=== PATIENT | female | born 1955 | race Caucasian/White ===

== ENCOUNTER → 2024-07-03 | Outpatient (CLI) | payer OTHER ==
[2024-07-03 14:32] LABS: Hematocrit 35.4 % (33.0-51.0); Hemoglobin 11.5 g/dL (11.5-16.0); Mean Corpuscular HGB Conc 32.5 g/dL (31.5-36.5); Mean Corpuscular Volume 99 fL (80-100); Mean Platelet Volume 10.9 fL (9.1-12.4); Platelet Count 328 K/mm3 (150-400); RDW Coefficient Variation 11.8 % (11.7-14.2); RDW Standard Deviation 42.9 fL (35.1-46.3); Red Blood Cell Count 3.59 M/mm3 (3.80-5.20); White Blood Cell Count 6.58 K/mm3 (4.00-11.30)
[2024-07-03 16:58] LABS: Thyroid Stimulating Hormone 0.996 uIU/mL (0.360-4.800)
[2024-07-03 16:59] LABS: Albumin, Blood 3.5 g/dL (3.4-5.0); Albumin/Globulin Ratio 1.2 (0.8-1.8); Bilirubin, Total 0.9 mg/dL (0.1-1.0); Bun/Creatinine Ratio 19.4 (12.0-20.0); Calcium, Blood 8.1 mg/dL (8.5-10.1); Creatinine, Blood 0.88 mg/dL (0.40-1.00); Globulin, Blood 2.9 g/dL (2.2-4.0); Potassium, Blood 4.1 mmol/L (3.5-5.5); Total Protein, Blood 6.4 g/dL (6.4-8.2)
== END | disposition home or self-care (01) ==
LOC: LAB 08:00 → LAB SHORT 08:00
PROVIDERS: Internal Medicine
DX: E78.00 Pure hypercholesterolemia, unspecified (principal); R53.83 Other fatigue
CPT/HCPCS: 80053; 84443; 85027

== ENCOUNTER 2024-09-11 10:12 | Inpatient (IN) | payer OTHER ==
[~2024-09-11] VITALS: Ht 167.6 cm; Wt 65.8 kg
[2024-09-11] VITALS (17 sets, daily range): BP systolic 129–177; BP diastolic 63–100
[2024-09-11] MEDS ORDERED: Ondansetron HCl 2 MG / ML 2ML Vial IV ONE (10:30)
[2024-09-11] MEDS ORDERED: Morphine Sulfate 4 MG/1 ML Injection IV ONE ×2 (10:30→12:00)
[2024-09-11 11:39] LABS: BASOPHILS ABSOLUTE AUTO 0.04 K/mm3 (0.00-0.23); BASOPHILS PERCENT AUTO 0 % (0-2); EOSINOPHILS ABSOLUTE AUTO 0.16 K/mm3 (0.00-0.68); EOSINOPHILS PERCENT AUTO 1 % (0-6); Hematocrit 36.5 % (33.0-51.0); Hemoglobin 12.4 g/dL (11.5-16.0); IMMATURE GRAN ABSOLUTE AUTO 0.08 K/mm3 (0.00-0.10); IMMATURE GRAN PERCENT AUTO 1 % (0-1); LYMPHOCYTES ABSOLUTE AUTO 1.73 K/mm3 (0.84-5.20); LYMPHOCYTES PERCENT AUTO 12 % (21-46); MONOCYTES ABSOLUTE AUTO 0.64 K/mm3 (0.16-1.47); MONOCYTES PERCENT AUTO 5 % (4-13); Mean Corpuscular HGB 32.4 pg (26.0-34.0); Mean Corpuscular Volume 95 fL (80-100); Mean Platelet Volume 10.5 fL (9.1-12.4); NEUTROPHILS ABSOLUTE AUTO 11.52 K/mm3 (1.96-9.15); NEUTROPHILS PERCENT AUTO 81 % (41-73); Platelet Count 346 K/mm3 (150-400); RDW Coefficient Variation 11.7 % (11.7-14.2); RDW Standard Deviation 40.4 fL (35.1-46.3); Red Blood Cell Count 3.83 M/mm3 (3.80-5.20); White Blood Cell Count 14.17 K/mm3 (4.00-11.30)
[2024-09-11 11:56] LABS: Calcium, Blood 8.5 mg/dL (8.5-10.1); Creatinine, Blood 0.72 mg/dL (0.40-1.00); Potassium, Blood 3.7 mmol/L (3.5-5.5)
[2024-09-11] MEDS ORDERED: Ondansetron HCl 2 MG / ML 2ML Vial IV PRN (13:25)
[2024-09-11] MEDS ORDERED: FentaNYL Citrate 50 MCG/ML 2 ML Injection IV PRN (13:25)
[2024-09-11] MEDS ORDERED: DORZOLAMIDE-TIM10 ML BOTHEYES (14:03)
[2024-09-11] MEDS ORDERED: ESCITALOPRAM OXA5 MG PO (14:03)
[2024-09-11] MEDS ORDERED: ROCKLATAN 0.022.5 M1 BOTHEYES (14:03)
[2024-09-11] MEDS ORDERED: ESTRADIOL10 MCG PO (14:04)
[2024-09-11] MEDS ORDERED: propofoL 20 ML IV ONE (14:04)
[2024-09-11] MEDS ORDERED: PROGESTERONE200 MG PO (14:04)
[2024-09-11] MEDS ORDERED: Dexamethasone Sod Phos 10 MG/ML 1ML VIAL ONE (14:05)
[2024-09-11] MEDS ORDERED: Midazolam HCl 1MG / ML 2ML Vial ONE (14:05)
[2024-09-11] MEDS ORDERED: Ondansetron HCl 2 MG / ML 2ML Vial ONE (14:05)
[2024-09-11] MEDS ORDERED: FentaNYL Citrate 50 MCG/ML 2 ML Injection ONE ×2 (14:05→15:52)
[2024-09-11] MEDS ORDERED: Lactated Ringer's 1,000 ML IV SCH (14:15)
[2024-09-11] MEDS ORDERED: CeFAZolin Sodium 2,000 MG VIAL ONE (14:17)
--- NOTE | 2024-09-11 14:17 | NUR ---
PT HAS 18G IV TO LEFT AC THAT FLUSHES WELL AND FLOWS TO GRAVITY.
[2024-09-11] MEDS ORDERED: Tranexamic Acid 100 ML IV SCH (14:20)
[2024-09-11] MEDS ORDERED: CeFAZolin Sodium 2,000 MG in NS 100 ML IV SCH ×2 (14:20→22:00)
--- NOTE | 2024-09-11 14:32 | NUR ---
PT BROUGHT FROM ER TO DAY SURGERY FOR PROCEDURE. History, Chart, Medications and Allergies reviewed before start of procedure. Lungs clear T/O to Auscultation. Pre-Op teaching done. Pt verbalizes understanding. PT BELONGINGS GIVEN TO HER FRIEND FOR SAFEKEEPING.
[2024-09-11] MEDS ORDERED: EpiNEPhrine 1 MG/1 ML 1ML Vial ONE (14:55)
[2024-09-11] MEDS ORDERED: Bupivacaine 0.5% HCl 5 MG/ML 30MLVIAL ONE (14:55)
[2024-09-11] MEDS ORDERED: Glycopyrrolate 0.2 MG/ML 5ML VIAL ONE (14:59)
[2024-09-11] MEDS ORDERED: FLU VACC TS2024-25(6MOS UP)/PF 45 MCG/0.5 ML SYRINGE IM ONE (15:00)
--- NOTE | 2024-09-11 15:10 | NUR ---
09/11/24 1970 Jasvir Rose PATIENT NOTED TO HAVE TOE RING ON RIGHT SECOND TOE, TRIED TO REMOVE IT GENTLY AND WAS UNABLE. RING LEFT ON. UNABLE TO REMOVE UNDERWEAR WITHOUT CUTTING THEM OFF.
[2024-09-11] MEDS ORDERED: HydrALAZINE HCl 20 MG / ML 1ML Vial ONE (16:03)
[2024-09-11] MEDS ORDERED: HYDROmorphone HCl/Pf 1MG SYR ONE (16:14)
--- NOTE | 2024-09-11 19:01 | NUR ---
POST OP: REPORT RECEIVED FROM SALES CORRESPONDENT. PT TO UNIT AT 1650. VSS, A/O. SURGICAL SITE WNL. SENSATION INTACT. PT REPORTS PAIN 4/10, MEDICATED PER EMAR. NO N/V PT ORIENTED TO ROOM AND CALL LIGHT IN REACH. INSTRUCTED TO CALL STAFF FOR ASSIST OOB. NO ACUTE CONCERNS.
[2024-09-11] MEDS ORDERED: OxyCODONE 5 mg/Acetamin 325 mg TABLET PO PRN (20:15)
[2024-09-12] VITALS (7 sets, daily range): BP systolic 111–151; BP diastolic 52–67
--- NOTE | 2024-09-12 04:21 | NUR ---
SHIFT SUMMARY POD 1 L HIP NAILING PT RESTED FOR MOST OF SHIFT. PT VERY PAINFUL WITH ANY MOVEMENT, UNABLE TO GET OOB TONIGHT DUE TO PAIN. PAIN MANAGED OTHERWISE PER EMAR. PT DENIES N/T TO EXT'S, WIGGLES TOES AND HAS GOOD CAP REFILL. TOLERATING PO INTAKE, ABLE TO VOID. DRESSING TO L HIP IS C/D/I. VSS. NO OTHER NEEDS AT THIS TIME, CALL LIGHT WITHIN REACH
[2024-09-12 04:59] LABS: BASOPHILS ABSOLUTE AUTO 0.01 K/mm3 (0.00-0.23); BASOPHILS PERCENT AUTO 0 % (0-2); EOSINOPHILS PERCENT AUTO 0 % (0-6); Hematocrit 31.8 % (33.0-51.0); Hemoglobin 10.9 g/dL (11.5-16.0); IMMATURE GRAN ABSOLUTE AUTO 0.06 K/mm3 (0.00-0.10); IMMATURE GRAN PERCENT AUTO 1 % (0-1); LYMPHOCYTES ABSOLUTE AUTO 1.18 K/mm3 (0.84-5.20); LYMPHOCYTES PERCENT AUTO 10 % (21-46); MONOCYTES ABSOLUTE AUTO 1.05 K/mm3 (0.16-1.47); MONOCYTES PERCENT AUTO 9 % (4-13); Mean Corpuscular HGB 32.3 pg (26.0-34.0); Mean Corpuscular HGB Conc 34.3 g/dL (31.5-36.5); Mean Corpuscular Volume 94 fL (80-100); Mean Platelet Volume 10.4 fL (9.1-12.4); NEUTROPHILS ABSOLUTE AUTO 9.82 K/mm3 (1.96-9.15); NEUTROPHILS PERCENT AUTO 81 % (41-73); Platelet Count 288 K/mm3 (150-400); RDW Coefficient Variation 11.7 % (11.7-14.2); Red Blood Cell Count 3.37 M/mm3 (3.80-5.20); White Blood Cell Count 12.12 K/mm3 (4.00-11.30)
[2024-09-12 05:25] LABS: Bun/Creatinine Ratio 16.7 (12.0-20.0); Calcium, Blood 8.5 mg/dL (8.5-10.1); Creatinine, Blood 0.72 mg/dL (0.40-1.00); Potassium, Blood 3.9 mmol/L (3.5-5.5)
[2024-09-12] MEDS ORDERED: Enoxaparin 40 MG/0.4 ML SYR SC SCH (09:00)
[2024-09-12] MEDS ORDERED: Aspirin 81 MG TabEC PO SCH (09:00)
[2024-09-12] MEDS ORDERED: ESTRADIOL (TWI1 EAC4 TD (10:45)
--- NOTE | 2024-09-12 18:35 | NUR ---
SHIFT SUMMARY POD1 L HIP NAILING, A/OX4, VSS, TOLERATING PO, PAIN MANAGED PER EMAR, VOIDING, WORKED WITH THERAPY TODAY AND WAS UP TO THE CHAIR TWICE THIS SHIFT, SHE IS STILL VERY FEARFUL OF MOVEMENT, SHE IS SLOW WITH HER MOVEMENTS BUT SHE IS ABLE TO DO IT SAFELY WITH SBA. NO ACUTE EVETNS THIS SHIFT, CALL LIGHT IN REACH.
[2024-09-12] MEDS ORDERED: Polyethylene Glycol 3350 17 gm PO SCH (19:00)
[2024-09-12] MEDS ORDERED: Sennosides 8.6 MG Tab PO SCH (21:00)
--- NOTE | 2024-09-13 04:20 | NUR ---
SHIFT SUMMARY KRISTINA WAS ALERT AND FULLY ORIENTED ON ASSESMENT. PT PAIN WELL MANAGED AT REST, PAINFUL WITH ANY MOVEMENT. PT VERY ANXIOUS AND FEARFUL OF POTENTIAL PAIN. PT ABLE TO AMBULATE TO AND FROM BED WITH 1P ASSIST. NO ACUTE EVENTS TONIGHT, NO NOTED CHANGES TO PT CONDITION.
[2024-09-13 04:32] VITALS: BP 116/59
[2024-09-13 07:06] VITALS: BP 131/54
[2024-09-13 07:09] LABS: Hematocrit 28.5 % (33.0-51.0); Hemoglobin 9.6 g/dL (11.5-16.0); Mean Corpuscular HGB 32.2 pg (26.0-34.0); Mean Corpuscular HGB Conc 33.7 g/dL (31.5-36.5); Mean Corpuscular Volume 96 fL (80-100); Mean Platelet Volume 10.9 fL (9.1-12.4); Platelet Count 218 K/mm3 (150-400); RDW Coefficient Variation 12.1 % (11.7-14.2); Red Blood Cell Count 2.98 M/mm3 (3.80-5.20); White Blood Cell Count 12.18 K/mm3 (4.00-11.30)
[2024-09-13 14:44] VITALS: BP 131/71
--- NOTE | 2024-09-13 16:34 | NUR ---
SHIFT SUMMARY PT POD2 L HIP NAILING. PT WORKED WITH PHYSICAL THERAPY TODAY AND DID WELL. AT THIS POINT, PT IS WANTING TO D/C TO SNF FOR REHAB. PT MOSTLY NON-PAINFUL AT REST, BUT IS VERY ANXIOUS ABOUT ANY MOVEMENT OR PAIN. PT REQUESTING Q4 HR PAIN MEDICINE. AQUACEL X2 TO L HIP/LATER THIGH C/D/I. PT ODETTE PO INTAKE WELL AND VOIDING NORMALLY.
[2024-09-13 19:37] VITALS: BP 126/54
[2024-09-13] MEDS ORDERED: Progesterone, Micronized 100 MG Cap PO SCH (21:00)
[2024-09-13] MEDS ORDERED: Citalopram Hydrobromide 10 MG TAB PO SCH (21:00)
--- NOTE | 2024-09-14 04:24 | NUR ---
SHIFT SUMMARY KRISTINA WAS ALERT AND FULLY ORIENTED ON ASSESMENT. PAIN WELL MANAGED AT REST. AQUACEL DRESSINGS C/D/I. PT STATES THAT SHE IS FEELING BETTER TODAY. NO ACUTE EVENTS TONIGHT, NO NOTED CHANGES TO PT CONDITION. PT RESTING IN BED WITH CALL LIGHT IN REACH.
[2024-09-14 05:05] VITALS: BP 126/67
[2024-09-14 06:05] LABS: BASOPHILS ABSOLUTE AUTO 0.05 K/mm3 (0.00-0.23); BASOPHILS PERCENT AUTO 1 % (0-2); EOSINOPHILS PERCENT AUTO 5 % (0-6); Hematocrit 28.1 % (33.0-51.0); Hemoglobin 9.4 g/dL (11.5-16.0); IMMATURE GRAN ABSOLUTE AUTO 0.03 K/mm3 (0.00-0.10); IMMATURE GRAN PERCENT AUTO 0 % (0-1); LYMPHOCYTES ABSOLUTE AUTO 3.05 K/mm3 (0.84-5.20); LYMPHOCYTES PERCENT AUTO 28 % (21-46); MONOCYTES ABSOLUTE AUTO 0.98 K/mm3 (0.16-1.47); MONOCYTES PERCENT AUTO 9 % (4-13); Mean Corpuscular HGB 32.6 pg (26.0-34.0); Mean Corpuscular HGB Conc 33.5 g/dL (31.5-36.5); Mean Corpuscular Volume 98 fL (80-100); Mean Platelet Volume 10.4 fL (9.1-12.4); NEUTROPHILS ABSOLUTE AUTO 6.13 K/mm3 (1.96-9.15); NEUTROPHILS PERCENT AUTO 57 % (41-73); Platelet Count 227 K/mm3 (150-400); RDW Standard Deviation 42.3 fL (35.1-46.3); Red Blood Cell Count 2.88 M/mm3 (3.80-5.20); White Blood Cell Count 10.74 K/mm3 (4.00-11.30)
[2024-09-14 07:29] VITALS: BP 121/66
[2024-09-14] MEDS ORDERED: BRIMONIDINE TART5 M2 BOTHEYES (08:50)
--- NOTE | 2024-09-14 11:31 | NUR ---
DR. LOU ROUNDED. DR. LOU WAS NOTIFIED THAT PT'S HOME MED LIST WAS UPDATED AND REQUESTED THAT HE REVIEW AND RESTART ANY MEDICATIONS THAT HAVE NOT ALREADY BEEN ORDERED.
[2024-09-14 15:35] VITALS: BP 109/64
--- NOTE | 2024-09-14 19:54 | NUR ---
SHIFT SUMMARY POD#3 FROM L HIP NAILING. PAIN MANAGED WITH PO PAIN MEDICATION. PT IS A 1 ASSIST WHEN OOB. SHE IS TOLERATING PO, VOIDING. VSS. WAITING FOR SNF APPROVAL. PT CALLS APPROPRIATELY. BEDSIDE REPORT GIVEN TO AKIL SHERIFF.
[2024-09-14 20:26] VITALS: BP 115/51
[2024-09-14] MEDS ORDERED: Brimonidine Tartrate 0.2% Opth 5 ml BOTHEYES SCH (21:00)
[2024-09-14] MEDS ORDERED: Dorzolamide/Timolol Opth Soln 10 ML BOTHEYES SCH (21:00)
--- NOTE | 2024-09-14 21:45 | NUR ---
MEDICATION EDUCATION PT REPORTED TAKING HER OWN MEDICATION THIS EVENING, LEXAPRO AND HER THREE EYEDROP MEDICATION. PT EDUCATED ABOUT THE RISKS OF TAKING PERSONAL MEDICATION WHILE IN THE HOSPITAL, PT VERBALIZED UNDERSTANDING AND STATED SHE WILL NOT TAKE HER HOME MEDICATIONS AGAIN.
[2024-09-15 03:00] VITALS: BP 124/54
--- NOTE | 2024-09-15 04:16 | NUR ---
SHIFT SUMMARY POD4 L HIP NAILING. AQUACEL REMAINS C/D/I. SMALL SPOTS OF EXUDATE NOTED ON DRESSING. SENSATION AND CIRCULATION REMAINS INTACT. VSS. PT SLEPT WELL T/O THE NIGHT. MEDICATED FOR PAIN WITH ONE PERCOCET, PT REPORTS THIS PROVIDES ADEQUATE RELIEF. PLEASE SEE PREVIOUS RN NOTE ADDRESSING THE PATIENT TAKING HER HOME MEDICATION. THE PATIENT HAS SLEPT WELL TONIGHT, IS TOLLERATING PO INTAKE W/O N/V. PATIENT HAS BEEN AMBULATING IN THE HALLS AND THROUGH HER ROOM W/ A SBA. VOIDING W/O DIFFICULTY. PT REPORTS NO BM IN X2 DAYS. OVERALL, NO ACUTE EVENTS NOTED. AWAITING DISCHARGE PLANNING. THE PATIENT IS CURRENTLY SLEEPING, IN NO DISTRESS, CALL LIGHT IN REACH
[2024-09-15 05:45] LABS: Hematocrit 27.5 % (33.0-51.0); Mean Corpuscular HGB 31.8 pg (26.0-34.0); Mean Corpuscular HGB Conc 32.7 g/dL (31.5-36.5); Mean Corpuscular Volume 97 fL (80-100); Mean Platelet Volume 10.6 fL (9.1-12.4); Platelet Count 245 K/mm3 (150-400); RDW Coefficient Variation 11.8 % (11.7-14.2); RDW Standard Deviation 42.4 fL (35.1-46.3); Red Blood Cell Count 2.83 M/mm3 (3.80-5.20); White Blood Cell Count 10.21 K/mm3 (4.00-11.30)
[2024-09-15 07:28] VITALS: BP 136/64
[2024-09-15] MEDS ORDERED: Estradiol 1 MG Tab PO SCH (09:00)
--- NOTE | 2024-09-15 12:54 | NUR ---
DR. LEONOR MORALES.
[2024-09-15 15:00] VITALS: BP 118/54
[2024-09-15 19:21] VITALS: BP 142/42
--- NOTE | 2024-09-15 20:21 | NUR ---
SHIFT SUMMARY PT IS POD#4. PLAN FOR SNF WHEN PT IS ABLE TO DISCHARGE. PT IS A 1 ASSIST WHEN OOB. PAIN MANAGED WITH PO PAIN MEDICATION. BEDSIDE REPORT GIVEN TO AKIL SHERIFF.
--- NOTE | 2024-09-16 04:43 | NUR ---
SHIFT SUMMARY POD4 L HIP NAILING. AQUACEL HAS MILD SS EXUDATE NOTED. BRUISING DEVELOPING POSTERIORLY TO THE AQUACEL DRESSINGS. SENSATION AND CIRCULATION REMAIN INTACT IN THE SURGICAL LIMB. VSS. PT HAS SLEPT WELL TO THE NIGHT. MEDICATED FOR DISCOMFORT W/ PERCOCET. PT REPORTS TOLLERABLE RESULTS NOTED. PT HAS BEEN AMBULATING W/SBA. VOIDING W/O DIFFICULTY. TOLLERATING PO INTAKE W/O N/V. OVERALL, NO ACUTE EVENTS NOTED.
[2024-09-16 05:47] VITALS: BP 133/59
[2024-09-16 07:20] VITALS: BP 140/57
[2024-09-16 14:39] VITALS: BP 125/72
[2024-09-16] MEDS ORDERED: Aspir 8181 MG PO (15:06)
[2024-09-16] MEDS ORDERED: SENN187 PO (15:07)
[2024-09-16] MEDS ORDERED: Percocet 5-3251 EACH PO (15:07)
[2024-09-16] MEDS ORDERED: MIRALAX17 GM PO (15:07)
--- NOTE | 2024-09-16 17:14 | NUR ---
DISCHARGE SUMMARY POD5 L HIP NAILING, A/OX4, VSS, TOLERATING PO, AMBULATING SBA, PAIN WELL MANAGED, AQUACELL DRESSINGS CHANGED TODAY PRIOR TO DISCHARGE. DISCUSSED DISCHARGE INSTRUCTIONS INCLUDING HOME CARE, MEDICATIONS, AND FOLLOW UP APPOINTMENTS. NO QUESTIONS AT THIS TIME, ESCORTED OUT VIA WC TO PRIVATE AUT[employer] TO GO HOME.
== END 2024-09-16 15:50 | disposition home health service (06) | DRG 481 ==
LOC: ER 10:12 → SURS 13:24
PROVIDERS: Emergency Medicine; Family Medicine; Orthopaedic Surgery Sports Medicine; ADMIT Internal Medicine
PROC: 0QS706Z Reposition Left Upper Femur with Intramedullary Internal Fixation Device, Open Approach (ICD-10-PCS; principal; 2024-09-11 14:30)
DX: S72.142A Displaced intertrochanteric fracture of left femur, initial encounter for closed fracture (principal); D62 Acute posthemorrhagic anemia; F32.A Depression, unspecified; Z28.21 Immunization not carried out because of patient refusal; H40.9 Unspecified glaucoma; Z79.899 Other long term (current) drug therapy; Z98.890 Other specified postprocedural states; W18.09XA Striking against other object with subsequent fall, initial encounter
CPT/HCPCS: 36415; 73502; 80048; 85025; 85027; 96374-59; 96375-59; 96376-59; 97110; 97116; 97162; 97530; 99284-25; A9270; C1713; J0171; J0360; J0690; J1100; J1171; J2250; J2270; J2405; J2704; J3010; J7120